=== PATIENT | female | born 1965 | race Caucasian/White ===

== ENCOUNTER 2017-01-11 12:14 | Outpatient (CLI) | payer BC ==
[2012-05-18 06:19] VITALS: BMI 36.6
== END 2017-01-11 14:11 ==
LOC: D.MAMMO 12:14
DX: Z12.31 Encounter for screening mammogram for malignant neoplasm of breast (principal)

== ENCOUNTER → 2017-09-21 07:42 | Outpatient (CLI) | payer BC ==
[2012-05-18 06:19] VITALS: BMI 36.6
[2017-09-21 08:13] LABS: BASOPHILS 0.5 % (0-2); EOSINOPHILS 2.4 % (0-7); HEMATOCRIT 42.3 % (36.0-48.0); HEMOGLOBIN 14.4 g/dL (12-16); IMMATURE GRANULOCYTES 0.2 % (0-5); LYMPHOCYTES 35.2 % (15-50); MCH 28.9 pg (26.0-34.0); MCV 84.8 fL (80.0-100.0); MEAN PLATELET VOLUME 10.9 fL (7.4-10.4); MONOCYTES 10.7 % (2-11); PLATELET COUNT 201 10x3/uL (130-400); RBC 4.99 10x6/uL (4.00-5.40); RDW 13.3 % (11.5-14.5); WBC 6.6 10x3/uL (4.8-10.8)
[2017-09-21 08:30] LABS: ALBUMIN 3.4 g/dL (3.4-5.0); ANION GAP 11.4 mmol/L (8-16); BILIRUBIN - TOTAL 0.23 mg/dL (0.2-1.3); CALCIUM 8.7 mg/dL (8.5-10.1); CARBON DIOXIDE 29.2 mmol/L (21.0-32.0); CHOL - HDL RATIO 3.9 ratio (2.3-4.1); CREATININE - SERUM 1.1 mg/dL (0.6-1.3); LDL-HDL RATIO 2.6 ratio (1.5-3.5); POTASSIUM - SERUM 3.6 mmol/L (3.5-5.1); PROTEIN - SERUM 7.1 g/dL (6.4-8.2); THYROID STIMULATING HORMONE 1.71 uIU/mL (0.36-3.74)
[2017-09-22 07:35] LABS: VITAMIN D 25 HYDROXY 26.9 ng/mL (30.0-100.0)
[2017-09-22 09:17] LABS: FOLATE (FOLIC ACID) - SERUM 7.1 ng/mL (>3.0)
== END | disposition home or self-care (01) ==
LOC: D.US 07:42 → D.RAD 09:30
PROVIDERS: Surgery
DX: E66.01 Morbid (severe) obesity due to excess calories (principal)

== ENCOUNTER → 2017-10-03 19:31 | Outpatient (CLI) | payer BC ==
[2012-05-18 06:19] VITALS: BMI 36.6
== END | disposition home or self-care (01) ==
LOC: D.SLEEP 19:31
DX: G47.30 Sleep apnea, unspecified (principal)

== ENCOUNTER → 2017-11-09 19:38 | Outpatient (CLI) | payer BC ==
[2012-05-18 06:19] VITALS: BMI 36.6
== END | disposition home or self-care (01) ==
LOC: D.SLEEP 08:00
DX: G47.30 Sleep apnea, unspecified (principal)

== ENCOUNTER → 2017-12-06 19:22 | Outpatient (CLI) | payer BC ==
[2012-05-18 06:19] VITALS: BMI 36.6
== END | disposition home or self-care (01) ==
LOC: D.SLEEP 08:00
DX: G47.33 Obstructive sleep apnea (adult) (pediatric) (principal); Z01.812 Encounter for preprocedural laboratory examination

== ENCOUNTER → 2019-02-02 07:29 | Outpatient (CLI) | payer BC ==
[2012-05-18 06:19] VITALS: BMI 36.6
== END | disposition home or self-care (01) ==
LOC: D.MRI 07:29
PROVIDERS: ATTEND Anesthesiology Pain Medicine
DX: M54.5 Low back pain (principal); M47.892 Other spondylosis, cervical region

== ENCOUNTER → 2019-09-26 08:02 | Outpatient (CLI) | payer BC ==
[2012-05-18 06:19] VITALS: BMI 36.6
== END | disposition home or self-care (01) ==
LOC: D.CT 08:02
PROVIDERS: ATTEND Nurse Practitioner
DX: R10.9 Unspecified abdominal pain (principal)

== ENCOUNTER → 2019-09-28 09:20 | Outpatient (CLI) | payer BC ==
[2012-05-18 06:19] VITALS: BMI 36.6
== END | disposition home or self-care (01) ==
LOC: D.MRI 09:20
PROVIDERS: ATTEND Family Medicine Geriatric Medicine
DX: M47.894 Other spondylosis, thoracic region (principal)